=== PATIENT | male | born 1955 | race Two or more races ===

== ENCOUNTER 2018-03-17 20:57 | Emergency (ER) | payer MEDICAID, MEDICARE ==
[~2018-03-17] VITALS: Ht 167.6 cm; Wt 81.6 kg
[~2018-03-17 20:57] MED LIST: CARV6.2551; FURO20TA3 OR; LISI-275 PO; LORA-653; SPIR25TA8 OR; WARF2.5T
[2018-03-17] MEDS ORDERED: ONDANSETRON HCL 4 MG/2 ML VIAL ONE (21:36)
[2018-03-17] MEDS ORDERED: HYDROmorphone HCL 2 MG/ML VL ONE (21:36)
[2018-03-17] MEDS ORDERED: HYDROmorphone HCL 2 MG/ML VL IV ONE ×2 (21:45→22:30)
[2018-03-17] MEDS ORDERED: ONDANSETRON HCL 4 MG/2 ML VIAL IV ONE (21:45)
[2018-03-17] MEDS ORDERED: MIDAZOLAM HCL 1MG/1ML-2 ML VIAL IM ONE (22:15)
[2018-03-17] MEDS ORDERED: fentaNYL CITRATE 100 MCG/2 ML VL IV ONE (22:15)
[2018-03-17] MEDS ORDERED: MIDAZOLAM HCL 5 MG/ML-1ML VIAL ONE (23:05)
[2018-03-17] MEDS ORDERED: NALOXONE HCL 0.4 MG/ML VIAL ONE ×2 (23:52→23:56)
[2018-03-18 01:00] VITALS: BP 122/89
[2018-03-18] MEDS ORDERED: NALOXONE HCL 0.4 MG/ML VIAL IV ONE (01:30)
== END 2018-03-18 03:18 | disposition home or self-care (01) ==
LOC: EDBD 20:57 → ER 21:03
DX: S82.61XA Displaced fracture of lateral malleolus of right fibula, initial encounter for closed fracture (principal); I11.0 Hypertensive heart disease with heart failure; I50.9 Heart failure, unspecified; Z86.711 Personal history of pulmonary embolism; W01.0XXA Fall on same level from slipping, tripping and stumbling without subsequent striking against object, initial encounter; Y93.01 Activity, walking, marching and hiking; Y92.098 Other place in other non-institutional residence as the place of occurrence of the external cause; Y99.8 Other external cause status
CPT/HCPCS: 27840; 73610; 96372; 96374; 96375; 96376; 99152; 99153; 99285; J1170; J2250; J2310; J2405; J3010